=== PATIENT | male | born 1970 | race Caucasian/White ===

== ENCOUNTER 2018-05-29 00:03 | Emergency (ER) | payer OTHER ==
[~2018-05-29] VITALS: Ht 162.6 cm; Wt 88.5 kg
[2018-05-29 00:07] VITALS: BP 130/74
[2018-05-29] MEDS: diphenhydrAMINE 50 MG/ML VIAL IM ONE (00:52)
[2018-05-29] MEDS: FAMOTIDINE 20 MG TAB PO ONE (00:52)
[2018-05-29] MEDS: DEXAMETHASONE 10 MG/ML VIAL IM ONE (00:53)
[2018-05-29 01:20] VITALS: BP 130/80
== END 2018-05-29 01:20 | disposition home or self-care (01) ==
LOC: MED 00:03
DX: L50.0 Allergic urticaria (principal)
CPT/HCPCS: 96372; 99284; J1100; J1200

== ENCOUNTER 2019-01-11 13:14 | Emergency (ER) | payer OTHER ==
[~2019-01-11] VITALS: Ht 162.6 cm; Wt 95.9 kg
[2019-01-11 13:23] VITALS: BP 139/77
--- NOTE | 2019-01-11 13:28 | NUR ---
PT AMBULATED TO ER BED 06
--- NOTE | 2019-01-11 13:30 | NUR ---
PATIENT PRESENTS TO ED WITH C/O RT KNEE PAIN X 2 MONTHS. PER PT HE WAS CLIMBING STAIRS AT WORK WHEN HE FELT THE KNEE "POPPED". PERIPHERAL PULSES PRESENT TO AFFECTED EXTREMITY; CAP REFILL <3 SECS. NO OBVIOUS SIGNS OF DEFORMITY NOTED.PATIENT STATES PAIN OF 8/10 AT THIS TIME; VSS; PATIENT POSITIONED FOR COMFORT; HOB ELEVATED; BEDRAILS UP X1; BED DOWN. ER MD TO EVALUATE PT.
--- NOTE | 2019-01-11 13:44 | NUR ---
DR ZAYAS AT BEDSIDE EVALUATING PT.
[2019-01-11] MEDS ORDERED: KETOROLAC 30 MG/ML VIAL IM ONE (13:55)
[2019-01-11] MEDS ORDERED: HYDROcodone/APAP 5/325 MG 1 TAB TAB PO ONE (13:55)
--- NOTE | 2019-01-11 14:02 | NUR ---
X-Ray at bedside.
--- NOTE | 2019-01-11 14:30 | NUR ---
EMT AT BEDSIDE TO PLACE IMMOBILIZER
--- NOTE | 2019-01-11 14:39 | NUR ---
Patient discharged with v/s stable. Written and verbal after care instructions given and explained. Patient alert, oriented and verbalized understanding of instructions. Ambulatory with steady gait. All questions addressed prior to discharge. ID band removed. Patient advised to follow up with PMD. Rx of IBUPROFEN, NORCO given. Patient educated on indication of medication including possible reaction and side effects. Opportunity to ask questions provided and answered.
[2019-01-11 14:40] VITALS: BP 138/77
== END 2019-01-11 14:39 | disposition home or self-care (01) ==
LOC: MED 13:14
DX: M25.561 Pain in right knee (principal); Z98.890 Other specified postprocedural states; X58.XXXA Exposure to other specified factors, initial encounter; Y93.89 Activity, other specified; Y92.89 Other specified places as the place of occurrence of the external cause; Y99.8 Other external cause status
CPT/HCPCS: 73562; 96372; 99283; J1885

== ENCOUNTER 2019-07-18 12:03 | Emergency (ER) | payer OTHER ==
[~2019-07-18] VITALS: Ht 162.6 cm; Wt 95.3 kg
[2019-07-18 12:09] VITALS: BP 116/68
--- NOTE | 2019-07-18 12:17 | NUR ---
PT AMBULATED TO ER BED 03
[2019-07-18] MEDS ORDERED: PROMETHAZINE 25 MG/ML VIAL IM ONE (12:35)
[2019-07-18] MEDS ORDERED: MORPHINE SULFATE 4 MG/ML SYR IM ONE (12:35)
--- NOTE | 2019-07-18 12:57 | NUR ---
PT TO CT VIA WC
--- NOTE | 2019-07-18 13:18 | NUR ---
RETURNED FROM CT
--- NOTE | 2019-07-18 13:24 | NUR ---
PT ASSESSED AFTER PAIN MEDICATION ADMINISTERED. PT STATES HE FEELS LESS PAIN 4/10, RESTING COMFORTABLY. AT BEDSIDE.
--- NOTE | 2019-07-18 15:20 | NUR ---
Patient discharged with v/s stable. Written and verbal after care instructions given and explained. Patient alert, oriented and verbalized understanding of instructions. Ambulatory with steady gait. All questions addressed prior to discharge. ID band removed. Patient advised to follow up with PMD. Rx of TRAMADOL given. Patient educated on indication of medication including possible reaction and side effects. Opportunity to ask questions provided and answered. CT READ HANDED TO PT
[2019-07-18 15:21] VITALS: BP 123/80
== END 2019-07-18 15:20 | disposition home or self-care (01) ==
LOC: MED 12:03
DX: S20.212A Contusion of left front wall of thorax, initial encounter (principal); W22.8XXA Striking against or struck by other objects, initial encounter; Y93.89 Activity, other specified; Y92.89 Other specified places as the place of occurrence of the external cause; Y99.8 Other external cause status
CPT/HCPCS: 71250; 74176; 96372; 99284; J2270; J2550